=== PATIENT | male | born 1950 | race African-American/Black ===

== ENCOUNTER → 2018-01-17 07:50 | Outpatient (CLI) | payer MEDICARE | END | disposition home or self-care (01) | LOC: D.US 07:50 | DX: I12.9 Hypertensive chronic kidney disease with stage 1 through stage 4 chronic kidney disease, or unspecified chronic kidney disease (principal); N18.3 Chronic kidney disease, stage 3 (moderate); M25.561 Pain in right knee; M10.9 Gout, unspecified; Z68.27 Body mass index [BMI] 27.0-27.9, adult ==

== ENCOUNTER → 2019-05-10 09:47 | Outpatient (CLI) | payer MEDICARE ==
--- NOTE | 2019-05-15 14:23 | EC ---
PATIENT:JACKELINE HAN DATE OF SERVICE: 05/10/19 SEX: M MEDICAL RECORD: [id number] DATE OF : [birth year] [facility] AGE OF PATIENT: 69 ADMISSION DATE: 05/10/19 REFERRING PHYSICIAN: INTERPRETING PHYSICIAN: BARBARA CHRIS MD ECHOCARDIOGRAM REPORT ECHO CHARGES 4 ECHO COMPLETE Date: 05/10/19 CLINICAL DIAGNOSIS: MURMUR HX HTN ECHOCARDIOGRAPHIC MEASUREMENTS (adult normal given) AC root (d.<3.7cm) 3.1 cm LV Septum d (<1.2 cm> 1.2 cm Valve Excursion 1.6 cm LV Septum (systole) 1.3 cm Left Atria (s.<4.0cm> 4.1 cm LVPW d(<1.2cm) 1.5 cm RV (d.<2.3cm) 3.5 cm LVPW (sytole) 1.6 cm LV diastole(<5.6CM) 5.7 cm MV E-F(>70mm/sec) cm LV systole 3.8 cm LVOT Diameter 2.1 cm MV exc.(>10mm) 1.5 cm Est.ejection fraction (50-75%) % DOPPLER: LVIT cm/sec A 105 cm/sec E 91.0 cm/sec LA cm/sec RVSP 25 mmHg LVOT 107 cm/sec AOP1/2T m/s Asc. Ao 153 cm/sec RVOT 56 cm/sec RA cm/sec PA 115 cm/sec AV Gradient Peak 9.35 mmHg AV Mean 4.77 mmHg AV Area 2.4 cm MV Gradient Peak 4.84 mmHg MV Mean 1.64 mmHg MV Area cm COMMENTS: Cocoa Powder Mixer Operator: 2 KIMBERLEY MENARD Marketing Planner: 3 Dr. Cormier TAPE# PACS Pericardial Effusion N DATE OF SERVICE: Adequate 2D, color flow, spectral Doppler, and M-mode. Borderline LVH. LV internal dimensions are normal. Wall motion is normal. EF is greater than or equal to 55%. Aortic valve is tricuspid. No evidence of stenosis by Doppler interrogation. Left atrium minimally dilated at 4.1 cm. Mitral valve shows no prolapse. Trace MR. Right-sided chambers grossly normal. Trace TR. TRANSINT:[id number] Voice Confirmation ID: [id number] DOCUMENT ID: [id number] ECHOCARDIOGRAM REPORT [id number] HAN,JACKELINE BARBARA CHRIS MD at 1423 CC: [id number] DICTATION DATE: 05/14/19 1313 CONDUCTOR/BRAKEMAN: 05/15/19 0041 DEP CLI 05/10/19 [id number] [place] [id number]
== END | disposition home or self-care (01) ==
LOC: D.HCCECHO 09:30
PROVIDERS: ATTEND Internal Medicine Interventional Cardiology
DX: R01.1 Cardiac murmur, unspecified (principal)